=== PATIENT | female | born 1980 | race Caucasian/White ===

== ENCOUNTER 2020-01-25 14:29 | Outpatient (CLI) | payer BC ==
--- NOTE | 2020-01-25 15:34 | CT ---
CT ABDOMEN AND PELVIS WITH IV CONTRAST 01/25/2020 CLINICAL INFORMATION: Lower abdominal pain right greater than left. COMPARISON: 03/11/2014 Technique: Multiple contiguous axial CT images are obtained through the abdomen and pelvis with IV contrast. Cor onal reformatted images are provided. FINDINGS: Lower Chest: Minimal linear scarring at each lung base. Lungs are otherwise clear Vessels: Abdominal aorta is normal in caliber. Abdomen: Portal vein:Patent Gallbladder: Decompressed. Liver: Stable approximately 6 mm too small to characterize hypodense lesion right hepatic lobe. Spleen: within normal limits. Pancreas: within normal limits. Adrenals: within normal limits. Kidneys: within normal limits. Bowel: Normal caliber. Appendix: Not visualized. No secondary signs are seen to suggest appendicitis. Peritoneum: No ascites or free air; no fluid collection. Mesentery and Retroperitoneum: No enlarged mesenteric or retroperitoneal lymph nodes. Abdominal Wall: There is a oval-shaped masslike area of slight increased density at the inferior aspe ct of the right rectus abdominis muscle measuring 2.7 cm x 1.4 cm in axial dimensions. Exact etiology for this structure is uncertain but is unchanged when compared to prior study in 2013 and al so appears to have been present on study in 2008. Given stability over this period of time does suggest a benign finding. Vessels are seen coursing this region, and this could potentially represent a very small vascular type malformation, but the exact etiology is uncertain. Pelvis: Reproductive Organs: 1.7 cm hypodense cystic structure right adnexa probably due to small ovarian cys t or dominant follicle. Bladder: within normal limits. Bones: No suspicious lytic or sclerotic osseous lesions. IMPRESSION: 1. No acute findings in the abdomen or pelvis. 2. Stable subcentimeter too small to characterize hypodense lesion posterior segment right hepatic lo be. 3. Masslike density inferior right rectus abdominis muscle which is unchanged compared to study in and also appears to been present on study in 2008. The exact etiology for this lesion is uncertain, but given stability over this period of time suggests a benign finding.
== END 2020-01-25 14:30 | disposition home or self-care (01) ==
LOC: BICCT 14:29
PROVIDERS: ATTEND Specialist
DX: R10.30 Lower abdominal pain, unspecified (principal); K76.9 Liver disease, unspecified; R93.5 Abnormal findings on diagnostic imaging of other abdominal regions, including retroperitoneum
CPT/HCPCS: 74177